=== PATIENT | female | born 1950 | race Caucasian/White ===

== ENCOUNTER 2016-08-22 14:55 | Emergency (ER) | payer MEDICARE, MEDICAID ==
[~2016-08-22] VITALS: Ht 160 cm; Wt 81.6 kg
[~2016-08-22 14:55] MED LIST: AC500T PO; AMOX-97 PO; ASP325TEC; ASP81CT; ASP81CT PO; ASP81TEC PO; ASPI-84; ATOR40TA PO; AZIT250T PO; BUDE6HFA IH; CALC-719 PO; CEPH-38 PO; CLOP75TA; CLOP75TA PO; CLPD75T; COUMADIN; COZAR; CRS350T; DIPH1TAB25 PO; ESCI20TA38 PO; ESCT10T; ESCT10T PO; FAMO20TA5; FENO145T; FENO145T2; FENO145T2 PO; FERR-57 PO; FRSM40T; FURO40TA4 PO; HYDR-2890 PO; HYDR-34 PO; HYDR1TAB PO; HYDROCODONE; INSU100C4; INSU100V6 SQ; INSU100V8; ISM60TCR; ISM60TCR PO; ISN300T; ISOS60TA3 PO; KCL10CCR; KCL10CCR PO; LEFL20TA; LEFL20TA PO; LEFL20TA4 PO; LEFLUNOMIDE; LEVO500T2 PO; LEVO500T69 PO; LEVO500T80 PO; LEVO750T6 PO; LNS30CCR; LOSA25TA15; LOSA25TA15 PO; LOSA25TA5 PO; LSRT50T PO; MAGN400T26 PO; MAGN400T29 PO; MAGNESIUM; MECL-106 PO; METF-380 PO; METO-354 PO; METO10TA3 PO; METO50TA7; METO50TA7 PO; METR500T PO; MSL250CCR PO; MTF500T; MTF500T PO; MTP25TSR PO; MTP50T; MULT-305 PO; Meclizine Hcl PO; NF-ESOM40C PO; NTR.4SL; OMG1KC; OXB5TCR; OXYB5TAB9; OXYB5TAB9 PO; PGLT30T; PGLT30T PO; PNT40TEC PO; POTA10CA43 PO; PROBIOTIC1 EACH PO; SIME125C PO; TRIA1TAB PO; TRIA1TAB42 PO; WARF4TAB PO; [UNRECOGNIZED DRUG - CODE]
--- NOTE | 2016-08-22 15:09 | ED Abdominal Pain ---
General Chief Complaint: Neurological Problems Stated Complaint: FALL Nursing Triage Note: TO ROOM 08 VIA AMBULANCE FROM HOME. STATES SHE HAS HAD N/V TODAY. ET ATTEMPT TO GET OUT OF BED ET BECAME WEAK AND FELL. DENIES HITTING HER BED. PT ARRIVED INC OF URINE AND STOOL. Sepsis Screen: No Definite Risk Source of Information: Patient Exam Limitations: No Limitations History of Present Illness Time Seen By Provider: 15:06 Initial Comments To ER per EMS from home with reports of nausea diarrhea and general weakness since this morning. She reports periumbilical abdominal pain. States that she try to get out of bed this morning when she slipped and fell but did not injure herself in doing so other than stating "I hurt my pride". The abdominal pain was present before the fall. She reports nausea but no vomiting. Upon arrival to ER she has been incontinent of both bowel and bladder. History of rheumatoid arthritis with Remicade injection every 2 months. Primary care is Elyse Langley at [facility]. She does wear oxygen at night. Records show that she does take Lomotil on a long-term basis and she states that she has run out of that. Timing/Duration: 12-24 Hours Severity/Quality: Moderate Radiation: No Radiation Activities at Onset: None Associated Symptoms: No Fever/Chills, Nausea/Vomiting Allergies and Home Medications Allergies Coded Allergies: enalaprilat (Verified Allergy, Unknown, 09/10/09) Home Medications Acetaminophen 500 Mg Tablet 1,000 MG PO Q6H PRN PRN (Reported) PRN PAIN Aspirin 81 Mg Tabec 81 MG PO DAILY (Reported) Atorvastatin Calcium 40 Mg Tablet 40 MG PO HS (Reported) Azithromycin 250 Mg Tablet #6 250 MG PO UD TAKE 2 TABLETS TODAY, THEN TAKE 1 TABLET DAILY FOR 4 MORE DAYS Prescribed by: CAROLINE HAZEL on 05/03/16 1441 Budesonide/Formoterol Fumarate 10.2 Gm Hfa.aer.ad 2 PUFF IH BID (Reported) Clopidogrel Bisulfate 75 Mg Tablet 75 MG PO DAILY (Reported) Diphenoxylate/Atropine 1 Tab Tablet #1 1 TAB PO QID Prescribed by: LINSEY SCHWARZ on 02/04/14 1453 Escitalopram Oxalate 20 Mg Tablet 30 MG PO DAILY (Reported) TAKES 1 & 1/2 TAB OF 20MG TAB DAILY Fenofibrate,Micronized 145 Mg Tablet 145 MG PO HS (Reported) Ferrous Sulfate 325 Mg Tablet 30Days 325 MG PO DAILY Prescribed by: XIANG LEE on 03/12/15 1437 Furosemide 40 Mg Tablet 40 MG PO DAILY (Reported) Hydrocodone Bit/Acetaminophen 1 Each Tablet 1 TAB PO Q6H (Reported) Insulin Glargine,Hum.rec.anlog 100 Unit/1 Ml Vial 30Days 10 UNITS SQ HS IF BLOOD GLUCOSE BELOW 200 PT DOES NOT TAKE FULL 20 UNITS. IF BLOOD GLUCOSE IS 200-230 PT TAKES 15 UNITS, IF OVER 230 WILL TAKE 20 UNITS. Prescribed by: XIANG LEE on 03/12/15 1437 Leflunomide 20 Mg Tablet 20 MG PO DAILY (Reported) Levofloxacin 500 Mg Tablet #7 500 MG PO DAILY Prescribed by: LAUREN MARQUEZ on 04/08/15 1127 Losartan Potassium 25 Mg Tablet 25 MG PO DAILY (Reported) Magnesium Oxide 400 Mg Tablet #30 400 MG PO DAILY (Reported) Meclizine Hcl 25 Mg Tab #60 25 MG PO BID PRN PRN DIZZINESS (Reported) Metformin Hcl 500 Mg Tablet 1,000 MG PO BID (Reported) TAKES 2 TABS OF 500MG TWICE DAILY Metoprolol Succinate 50 Mg Tab.sr.24h 30Days 25 MG PO DAILY TAKES 1/2 TAB DAILY (25 MG) Prescribed by: XIANG LEE on 03/12/15 1431 Oxybutynin Chloride 5 Mg Tablet 5 MG PO DAILY (Reported) Pantoprazole Sod 40 Mg Tab 40 MG PO DAILY (Reported) Pioglitazone Hcl 30 Mg Tab 30 MG PO DAILY (Reported) Potassium Chloride 10 Meq Tablet.sa 20 MEQ PO DAILY (Reported) Triamterene/Hydrochlorothiazid 1 Each Tablet 0.5 TAB PO DAILY (Reported) Review of Systems Constitutional: see HPINo chills, No fever EENTM: No Symptoms Reported Respiratory: No Symptoms Reported Cardiovascular: No Symptoms Reported Gastrointestinal: See HPI Abdominal Pain Diarrhea Nausea Genitourinary: No Symptoms Reported Musculoskeletal: no symptoms reported Skin: no symptoms reported Psychiatric/Neurological: No Symptoms Reported Endocrine: No Symptoms Reported Past Osslfei-Adapco-Lwalzb Hx Patient Social History Former Smoker/When Quit: Mar 11, 1994 Recent Foreign Travel: No Contact w/Someone Who Travel: No Recent Infectious Disease Expo: No Recent Hopitalizations: No Immunizations Up To Date Tetanus Booster (TDap): More than 5yrs Date of Pneumonia Vaccine: May 19, 2010 Date of Influenza Vaccine: May 19, 2014 Seasonal Allergies Seasonal Allergies: No Surgeries HX Surgeries: Yes (TRIPLE BYPASS AND 7 STENTS PLACED OF 2006) Surgeries: Cardiac, CABG Respiratory Hx Respiratory Disorders: Yes Respiratory Disorders: Pneumonia, Sleep Apnea, COPD, Emphysema Cardiovascular Hx Cardiac Disorders: Yes (BYPASS) Cardiac Disorders: Coronary Artery Disease Neurological Hx Neurological Disorders: Yes Reproductive System Hx Reproductive Disorders: No Sexually Transmitted Disease: Yes (CHLAMYDIA HX) HIV/AIDS: No Female Reproductive Disorders: Denies Genitourinary Hx Genitourinary Disorders: No Gastrointestinal Hx Gastrointestinal Disorders: Yes Gastrointestinal Disorders: Gastroesophageal Reflux, Diverticulosis, Chronic Diarrhea, Gall Bladder Disease Musculoskeletal Hx Musculoskeletal Disorders: Yes (RA/FIBROMYALGIA REMICADE EVERY 8 WEEKS, ) Musculoskeletal Disorders: Fibromyalgia, Rheumatoid Arthritis Endocrine Hx Endocrine Disorders: Yes Endocrine Disorders: Diabetes, Insulin dep HEENT HX ENT Disorders: No Loss of Vision: Denies Hearing Impairment: Denies Cancer Hx Cancer: No Psychosocial Hx Psychiatric Problems: Yes Behavioral Health Disorders: Anxiety, Depression Integumentary HX Skin/Integumentary Disorder: No Blood Transfusions Hx Blood Disorders: No Adverse Reaction to a Blood Tr: No Family Medical History Significant Family History: No Pertinent Family Hx Family Medial History: Alcoholism son, Onset:Unknown son, Onset:Unknown Cardiovascular disease 19 FATHER, Onset:Unknown Chest pain 19 FATHER, Onset:Unknown Diabetes mellitus 19 FATHER, Onset:Unknown G8 SISTER, Onset:Unknown DAUGHTER, Onset:Unknown Family history: Diabetes mellitus 19 FATHER G8 SISTER DAUGHTER Family history: Hypertension 19 FATHER 19 MOTHER DAUGHTER History of - respiratory disease DAUGHTER Myocardial infarction 19 FATHER Myocardial infarction 19 FATHER Psychotic disorder 19 FATHER 19 MOTHER DAUGHTER Tuberculosis Grandmother, Onset:Unknown No Family History of: Abdominal aortic aneurysm Milam's disease Aphasia Arthritis Asthma Cancer Cancer of colon Cancer of mouth Cataract Cataracts Colon cancer Completed stroke Congenital disease Congenital heart disease Congestive heart failure Coronary thrombosis Cystic fibrosis Cystic fibrosis Deafness or hearing loss Dementia Dementia Drug abuse Dysphagia Dysphasia Family history: Allergy Family history: Alzheimer's disease Family history: Arthritis Family history: Asthma Family history: Breast disease Family history: Cardiovascular disease Family history: Coronary thrombosis Family history: Gastrointestinal disease Family history: Glaucoma Family history: Osteoporosis Family history: Thyroid disorder Headache Hearing loss Heart disease Hereditary disease History of - anemia History of - disorder History of drug abuse Human immunodeficiency virus (HIV) seropositivity Hypercholesterolemia Hypertension Infertile Infertility Kidney disease Kidney disease Malignant neoplasm of lung Neoplasm Not obtainable due to adoption Osteoporosis Parkinson's disease Parkinson's disease Prostate cancer Respiratory disorder Seizure disorder Seizure disorder Severe allergy Stroke Tuberculosis Visual impairment Physical Exam Vital Signs VS - Last 72 Hours, by Label 08/22/16 08/22/16 14:58 15:17 Temp 99.7 Pulse 96 Resp 18 B/P 169/84 Pulse Ox 88 O2 Delivery Room Air Nasal Cannula O2 Flow Rate 2 Capillary Refill : Less Than 3 Seconds General Appearance: WD/WN no apparent distress obese other (Chronicall ill, appears older than stated age. ) HEENT: PERRL/EOMI normal ENT inspection Neck: non-tender full range of motion Respiratory: no respiratory distress no accessory muscle use Gastrointestinal: normal bowel sounds soft tenderness (periumbilical) Extremities: normal range of motion non-tender Neurologic/Psychiatric: alert normal mood/affect oriented x 3 Skin: normal color warm/dry Laceration Repair : Suture Size: 5-0 Progress/Results/Core Measures Results/Orders Lab Results Laboratory Tests Test 08/22/16 15:10 08/22/16 16:00 Range/Units Alanine Aminotransferase (ALT/SGPT) 31 0-55 U/L Albumin 3.8 3.2-4.5 G/DL Alkaline Phosphatase 53 40-136 U/L Anion Gap 10 5-14 MMOL/L Aspartate Amino Transf (AST/SGOT) 70 H 5-34 U/L BUN/Creatinine Ratio 20 Basophils # (Auto) 0.0 0.0-0.1 10^3/uL Basophils (%) (Auto) 1 0-10 % Blood Urea Nitrogen 25 H 7-18 MG/DL Calcium Level 9.5 8.5-10.1 MG/DL Carbon Dioxide Level 29 21-32 MMOL/L Chloride Level 100 98-107 MMOL/L Creatinine 1.28 0.60-1.30 MG/DL Eosinophils # (Auto) 0.1 0.0-0.3 10^3/uL Eosinophils (%) (Auto) 3 0-10 % Estimat Glomerular Filtration Rate 42 Glucose Level 216 H 70-105 MG/DL Hematocrit 37 35-52 % Hemoglobin 12.1 11.5-16.0 G/DL Lipase 29 8-78 U/L Lymphocytes # (Auto) 1.0 1.0-4.0 X 10^3 Lymphocytes (%) (Auto) 26 12-44 % Mean Corpuscular Hemoglobin 31 25-34 PG Mean Corpuscular Hemoglobin Concent 33 32-36 G/DL Mean Corpuscular Volume 95 80-99 FL Mean Platelet Volume 10.8 H 7.4-10.4 FL Monocytes # (Auto) 0.5 0.0-1.0 X 10^3 Monocytes (%) (Auto) 14 H 0-12 % Neutrophils # (Auto) 2.1 1.8-7.8 X 10^3 Neutrophils (%) (Auto) 56 42-75 % Platelet Count 193 130-400 10^3/uL Potassium Level 3.5 L 3.6-5.0 MMOL/L Red Blood Count 3.90 L 4.35-5.85 10^6/uL Red Cell Distribution Width 13.9 10.0-14.5 % Sodium Level 139 135-145 MMOL/L Total Bilirubin 0.5 0.1-1.0 MG/DL Total Protein 7.0 6.4-8.2 G/DL White Blood Count 3.8 L 4.3-11.0 10^3/uL Urine Bacteria TRACE /HPF Urine Bilirubin NEGATIVE NEGATIVE Urine Casts NONE /LPF Urine Clarity CLEAR Urine Color YELLOW Urine Crystals NONE /LPF Urine Culture Indicated NO Urine Glucose (UA) 1+ H NEGATIVE Urine Ketones NEGATIVE NEGATIVE Urine Leukocyte Esterase 1+ H NEGATIVE Urine Mucus NEGATIVE /LPF Urine Nitrite NEGATIVE NEGATIVE Urine Protein NEGATIVE NEGATIVE Urine RBC NONE /HPF Urine RBC (Auto) NEGATIVE NEGATIVE Urine Specific Clark 1.005 L 1.016-1.022 Urine Urobilinogen NORMAL NORMAL MG/DL Urine WBC 0-2 /HPF Urine pH 7 5-9 My Orders Orders-CAROLINE HAZEL HAND [employer]ATE [employer]ER Cbc With Automated Diff (08/22/16 15:03) Comprehensive Metabolic Panel (08/22/16 15:03) Lipase (08/22/16 15:03) Ua Culture If Indicated (08/22/16 15:03) Saline Lock/Iv-Start (08/22/16 15:03) Ct Abdomen/Pelvis Wo (08/22/16 15:03) Chest 1 View, Ap/Pa Only (08/22/16 15:10) Oxygen-Administer 07,19 (08/22/16 15:12) Ns Iv 1000 Ml (Sodium Chloride 0.9%) (08/22/16 15:30) Ondansetron Injection (Zofran Injectio (08/22/16 15:45) Diphenhydramine Injection (Benadryl Inje (08/22/16 15:45) Fentanyl Injection (Sublimaze Injection (08/22/16 16:15) Medications Given in ED Current Medications Medications Dose Ordered Sig/Johnny Route Start Time Stop Time Status Last Admin Dose Admin Diphenhydramine HCl 12.5 mg ONCE ONCE IVP 08/22/16 15:45 08/22/16 15:46 DC 08/22/16 15:47 12.5 MG Fentanyl Citrate 50 mcg ONCE ONCE IVP 08/22/16 16:15 08/22/16 16:16 DC 08/22/16 16:24 50 MCG Ondansetron HCl 4 mg ONCE ONCE IVP 08/22/16 15:45 08/22/16 15:46 DC 08/22/16 15:47 4 MG Vital Signs/I&O Vital Sign - Last 12Hours 08/22/16 08/22/16 14:58 15:17 Temp 99.7 Pulse 96 Resp 18 B/P 169/84 Pulse Ox 88 O2 Delivery Room Air Nasal Cannula O2 Flow Rate 2 Blood Pressure Mean: 112 Diagnostic Imaging Diagonstic Imaging: CT Comments NAME: LINDA THURMAN [facility] REC#: [id number] PT STATUS: REG ER : 1950 PHYSICIAN: CAROLINE HAZEL APRN ADMIT DATE: 08/22/16/ER Draft Date of Exam:08/22/16 CT ABDOMEN/PELVIS WO PROCEDURE: CT abdomen and pelvis without contrast. TECHNIQUE: Multiple contiguous axial images were obtained through the abdomen and pelvis without the use of intravenous contrast. INDICATION: Fall. Pain across the upper abdomen. Nausea. COMPARISON: 04/08/2015. FINDINGS: Included portions of the lung bases again show left-sided pleural thickening with rounded atelectasis of the left lower lobe. Note is made of calcified coronary atherosclerosis. CT abdomen: Small bowel loops are nondistended. Normal appendix is identified. The spleen, kidneys, liver, pancreas, and adrenal glands have an unremarkable noncontrast CT appearance. There is no loculated fluid collection, free fluid, or free air within the abdomen. No abnormal mesenteric or retroperitoneal adenopathy is seen. Note is made of diffuse calcified aortic and arterial atherosclerosis. Indwelling IVC filter is also present. Bony structures show no acute abnormalities. CT pelvis: Urinary bladder is unopacified. No calculus is seen within the urinary bladder. There is no loculated fluid collection, free fluid, or free air within the pelvis. No abnormal lymph nodes are seen. Bony structures show no acute abnormalities. IMPRESSION: 1. No acute abnormalities within the abdomen or pelvis. 2. Diffuse calcified aortic and arterial atherosclerosis. Correlation for underlying risk factors is recommended. 3. Chronic pleural thickening within the lower left hemithorax with associated rounded atelectasis of the left lower lobe. Dictated on workstation # [id number] Dict: 08/22/16 1543 Trans: 08/22/16 1551 [id number] Interpreted by: KVNG PINZON Electronically signed by: NAME: LINDA THURMAN [facility] REC#: [id number] PT STATUS: REG ER : 1950 PHYSICIAN: CAROLINE HAZEL APRN ADMIT DATE: 08/22/16/ER Draft Date of Exam:08/22/16 CHEST 1 VIEW, AP/PA ONLY INDICATION: Hypoxia. COMPARISON: 05/03/2016. EXAMINATION: Single view of the chest was obtained. FINDINGS: Congenital right-sided aortic arch is noted. The sternal wires are midline. A few are fractured but unchanged in alignment. There is some chronic scarring in the left lung base and chronic basilar pleural reaction, unchanged. Air trapping and COPD, stable. IMPRESSION: Stable chronic findings. Dictated on workstation # [id number] Dict: 08/22/16 1553 Trans: 08/22/16 1558 PJ [id number] Interpreted by: LORELEI GABRIEL Electronically signed by: Departure Impression Impression: Primary Impression: Weakness Additional Impressions: Generalized abdominal discomfort Diarrheal stools Qualified Code: R19.7 - Diarrhea, unspecified Disposition: 01 HOME, SELF-CARE Condition: Stable Departure-Patient Inst. Decision time for Depature: 16:19 [facility]errals: [facility] ([facility]Family) Primary Care Physician Patient Instructions: Diarrhea and Traveler's Diarrhea, Adult (DC) Add. Discharge Instructions: 1. Lots of fluids. Water is fine if you don't like Gatorade 2. Check your sugars 2-3 times a day for the next few days since they're little high line 3. Bananas rice applesauce and toast for the next 12-24 hours and he may advance her diet from there if you tolerate that okay All discharge instructions reviewed with patient and/or family. Voiced understanding. Scripts Ondansetron (Zofran Odt)8 Mg Tab.rapdis8 Mg PO Q6H PRN NAUSEA/VOMITING #10 TAB Prov:CAROLINE HAZEL APRN 08/22/16 CAROLINE HAZEL APRN Aug 22, 2016 15:08
[2016-08-22 15:19] LABS: BASOPHILS % (AUTO) 1 % (0-10); EOSINOPHILS # (AUTO) 0.1 10^3/uL (0.0-0.3); EOSINOPHILS % (AUTO) 3 % (0-10); LYMPHOCYTES % (AUTO) 26 % (12-44); MEAN CORPUSCULAR HEMOGLOBIN 31 PG (25-34); MEAN CORPUSCULAR HGB CONC 33 G/DL (32-36); MEAN CORPUSCULAR VOLUME 95 FL (80-99); MEAN PLATELET VOLUME 10.8 FL (7.4-10.4); MONOCYTES # (AUTO) 0.5 X 10^3 (0.0-1.0); MONOCYTES % (AUTO) 14 % (0-12); NEUTROPHILS # (AUTO) 2.1 X 10^3 (1.8-7.8); NEUTROPHILS % (AUTO) 56 % (42-75); PLATELET COUNT 193 10^3/uL (130-400); RED CELL DISTRIBUTION WIDTH 13.9 % (10.0-14.5); WHITE BLOOD COUNT 3.8 10^3/uL (4.3-11.0)
[2016-08-22] MEDS ORDERED: NS IV 1000 ML 1,000 ML IV SCH (15:30)
[2016-08-22 15:39] LABS: ALBUMIN 3.8 G/DL (3.2-4.5); BILIRUBIN,TOTAL 0.5 MG/DL (0.1-1.0); CALCIUM 9.5 MG/DL (8.5-10.1); CREATININE SERUM 1.28 MG/DL (0.60-1.30); POTASSIUM 3.5 MMOL/L (3.6-5.0)
[2016-08-22] MEDS ORDERED: ONDANSETRON 4 MG/2 ML (SDV) Z0FRAN IVP ONE (15:45)
[2016-08-22] MEDS ORDERED: diphenhydrAMINE 50 MG/ML INJ (BENADRYL) IVP ONE (15:45)
--- NOTE | 2016-08-22 15:51 | Diagnostic Imaging Report ---
PROCEDURE: CT abdomen and pelvis without contrast. TECHNIQUE: Multiple contiguous axial images were obtained through the abdomen and pelvis without the use of intravenous contrast. INDICATION: Fall. Pain across the upper abdomen. Nausea. COMPARISON: 04/08/2015. FINDINGS: Included portions of the lung bases again show left-sided pleural thickening with rounded atelectasis of the left lower lobe. Note is made of calcified coronary atherosclerosis. CT abdomen: Small bowel loops are nondistended. Normal appendix is identified. The spleen, kidneys, liver, pancreas, and adrenal glands have an unremarkable noncontrast CT appearance. There is no loculated fluid collection, free fluid, or free air within the abdomen. No abnormal mesenteric or retroperitoneal adenopathy is seen. Note is made of diffuse calcified aortic and arterial atherosclerosis. Indwelling IVC filter is also present. Bony structures show no acute abnormalities. CT pelvis: Urinary bladder is unopacified. No calculus is seen within the urinary bladder. There is no loculated fluid collection, free fluid, or free air within the pelvis. No abnormal lymph nodes are seen. Bony structures show no acute abnormalities. IMPRESSION: 1. No acute abnormalities within the abdomen or pelvis. 2. Diffuse calcified aortic and arterial atherosclerosis. Correlation for underlying risk factors is recommended. 3. Chronic pleural thickening within the lower left hemithorax with associated rounded atelectasis of the left lower lobe. Dictated by: Dictated on workstation # [id number]
--- NOTE | 2016-08-22 15:59 | Diagnostic Imaging Report ---
INDICATION: Hypoxia. COMPARISON: 05/03/2016. EXAMINATION: Single view of the chest was obtained. FINDINGS: Congenital right-sided aortic arch is noted. The sternal wires are midline. A few are fractured but unchanged in alignment. There is some chronic scarring in the left lung base and chronic basilar pleural reaction, unchanged. Air trapping and COPD, stable. IMPRESSION: Stable chronic findings. Dictated by: Dictated on workstation # [id number]
[2016-08-22 16:07] LABS: BILIRUBIN,URINE NEGATIVE (NEGATIVE); KETONES,URINE NEGATIVE (NEGATIVE); LEUKOCYTE ESTERASE ,URINE 1+ (NEGATIVE); NITRITE,URINE NEGATIVE (NEGATIVE); PH,URINE 7 (5-9); PROTEIN,URINE NEGATIVE (NEGATIVE); UROBILINOGEN,URINE NORMAL (NORMAL)
[2016-08-22] MEDS ORDERED: fentaNYL INJECTION 100 MCG/2 ML AMP IVP ONE (16:15)
[2016-08-22 16:21] LABS: WBC,URINE 0-2 /HPF
[2016-08-22] MEDS ORDERED: ONDA8TAB9 PO (16:29)
[2016-08-22 17:03] VITALS: BP 162/87
[2016-11-07] MEDS ORDERED: CYAN10006 PO (13:07)
[2016-11-07] MEDS ORDERED: OMEG-160 PO (13:07)
== END 2016-08-22 17:02 | disposition home or self-care (01) ==
LOC: EDUNIT# 14:55 → ER 14:56
DX: R10.84 Generalized abdominal pain (principal); R53.1 Weakness; R19.7 Diarrhea, unspecified; I10 Essential (primary) hypertension; E11.9 Type 2 diabetes mellitus without complications; E66.9 Obesity, unspecified; M06.9 Rheumatoid arthritis, unspecified; I70.0 Atherosclerosis of aorta; Z79.4 Long term (current) use of insulin; Z79.02 Long term (current) use of antithrombotics/antiplatelets; Z79.899 Other long term (current) drug therapy; Z79.82 Long term (current) use of aspirin; Z95.1 Presence of aortocoronary bypass graft; Z95.5 Presence of coronary angioplasty implant and graft
CPT/HCPCS: 36415; 71010; 74176; 80053; 81000; 83690; 85025; 96361; 96374; 96375

== ENCOUNTER → 2016-09-12 | Outpatient (CLI) | payer MEDICARE, MEDICAID ==
[~2016-09-12] VITALS: Ht 160 cm; Wt 81.6 kg
[~2016-09-12] MED LIST changes: +ACETAMINOPHEN 500 MG TAB (TYLENOL) PO SCH; +CYAN10006 PO; +OMEG-160 PO; +ONDA8TAB9 PO; +TRAM50TA2 PO; +diphenhydrAMINE 25 MG TAB (BENADRYL) PO SCH; +inFLIXimab FOR IV 500 MG in NORMAL SALINE 250 ML IV SCH
[2016-09-12 12:46] VITALS: BP 130/66
== END ==
LOC: SDC 12:33
PROVIDERS: ATTEND Nurse Practitioner Adult Health
DX: M05.741 Rheumatoid arthritis with rheumatoid factor of right hand without organ or systems involvement (principal); M05.742 Rheumatoid arthritis with rheumatoid factor of left hand without organ or systems involvement; M54.2 Cervicalgia; M32.9 Systemic lupus erythematosus, unspecified; M06.9 Rheumatoid arthritis, unspecified; Z79.899 Other long term (current) drug therapy
CPT/HCPCS: 96365; 96366; 96374

== ENCOUNTER → 2016-11-07 | Outpatient (CLI) | payer MEDICARE, MEDICAID ==
[~2016-11-07] VITALS: Ht 160 cm; Wt 81.6 kg
[~2016-11-07] MED LIST changes: +inFLIXimab 500 MG/NS 250 ML (EXCEL) IV SCH; -inFLIXimab FOR IV 500 MG in NORMAL SALINE 250 ML IV SCH
[2016-11-07 13:15] VITALS: BP 130/67
[2016-11-07 15:20] VITALS: BP 130/67
== END ==
LOC: SDC 12:33
PROVIDERS: ATTEND Internal Medicine
DX: M06.9 Rheumatoid arthritis, unspecified (principal)
CPT/HCPCS: 96365; 96366

== ENCOUNTER 2016-11-27 10:03 | Emergency (ER) | payer MEDICARE, MEDICAID ==
[~2016-11-27] VITALS: Ht 167.6 cm; Wt 86.2 kg
[~2016-11-27 10:03] MED LIST changes: -ACETAMINOPHEN 500 MG TAB (TYLENOL) PO SCH; -TRAM50TA2 PO; -diphenhydrAMINE 25 MG TAB (BENADRYL) PO SCH; -inFLIXimab 500 MG/NS 250 ML (EXCEL) IV SCH
[2016-11-27] MEDS ORDERED: fentaNYL INJECTION 100 MCG/2 ML AMP IVP STA ×2 (10:12→13:29)
[2016-11-27 10:40] LABS: BASOPHILS # (AUTO) 0.1 10^3/uL (0.0-0.1); BASOPHILS % (AUTO) 1 % (0-10); EOSINOPHILS % (AUTO) 1 % (0-10); LYMPHOCYTES % (AUTO) 21 % (12-44); MEAN CORPUSCULAR HEMOGLOBIN 31 PG (25-34); MEAN CORPUSCULAR HGB CONC 33 G/DL (32-36); MEAN CORPUSCULAR VOLUME 95 FL (80-99); MEAN PLATELET VOLUME 11.2 FL (7.4-10.4); MONOCYTES # (AUTO) 0.5 X 10^3 (0.0-1.0); MONOCYTES % (AUTO) 10 % (0-12); NEUTROPHILS # (AUTO) 3.3 X 10^3 (1.8-7.8); NEUTROPHILS % (AUTO) 68 % (42-75); PLATELET COUNT 207 10^3/uL (130-400); RED BLOOD COUNT 3.97 10^6/uL (4.35-5.85); RED CELL DISTRIBUTION WIDTH 13.6 % (10.0-14.5); WHITE BLOOD COUNT 4.9 10^3/uL (4.3-11.0)
--- NOTE | 2016-11-27 10:48 | Diagnostic Imaging Report ---
INDICATION: Weakness and fatigue. DISCUSSION: Single portable upright view of the chest was obtained, comparison 08/22/2016. Scarring within the left midlung is stable. Right chest wall Bzoila-l-Zugl is unchanged. Median sternotomy is again noted. Normal heart size. Underlying COPD is stable. Small left pleural effusion or pleural scarring is stable. IMPRESSION: 1. Stable chest. Dictated by: Dictated on workstation # [id number]
[2016-11-27 10:50] LABS: BILIRUBIN,URINE NEGATIVE (NEGATIVE); KETONES,URINE NEGATIVE (NEGATIVE); LEUKOCYTE ESTERASE ,URINE NEGATIVE (NEGATIVE); NITRITE,URINE NEGATIVE (NEGATIVE); PH,URINE 7 (5-9); PROTEIN,URINE 1+ (NEGATIVE); UROBILINOGEN,URINE NORMAL (NORMAL)
[2016-11-27 10:54] LABS: INR 1.2 (0.8-1.4); PROTHROMBIN TIME PATIENT 14.7 SEC (12.2-14.7)
--- NOTE | 2016-11-27 10:59 | ED General ---
General Chief Complaint: Fever-Adult/Adol Stated Complaint: FEELING POORLY Nursing Triage Note: PT ARRIVED BY EMS, STATES NOT FEELING WELL, FEVER, SOA Nursing Sepsis Screen: Possible Sepsis Risk Source of Information: Patient Exam Limitations: No Limitations History of Present Illness Time Seen by Provider: 10:05 Initial Comments Here with report of not feeling well. She called EMS due to not feeling well. EMS noted that she had a fever. Patient was difficult to ascertain information from per EMS. She did walk from her house to the ambulance of her own accord. States her fibromyalgia is hurting everywhere. Was noted to have a fever. Denies vomiting or diarrhea. Reports shortness of breath. Timing/Duration: 12-24 Hours Severity: Moderate Associated Systoms: No Chest Pain, No Cough, Fever/Chills, No Nausea/Vomiting, Shortness of Air, Weakness Allergies and Home Medications Allergies Coded Allergies: enalaprilat (Verified Allergy, Unknown, 09/10/09) Home Medications Acetaminophen 500 Mg Tablet, 1,000 MG PO Q6H PRN, (Reported) PRN PAIN Aspirin 81 Mg Tabec, 81 MG PO DAILY, (Reported) Atorvastatin Calcium 40 Mg Tablet, 40 MG PO HS, (Reported) Budesonide/Formoterol Fumarate 10.2 Gm Hfa.aer.ad, 2 PUFF IH BID, (Reported) Clopidogrel Bisulfate 75 Mg Tablet, 75 MG PO DAILY, (Reported) Cyanocobalamin (Vitamin B-12) 1,000 Mcg Tablet, 1,000 MCG PO DAILY, (Reported) Diphenoxylate/Atropine 1 Tab Tablet, 1 TAB PO QID, #1 Prescribed by: LINSEY SCHWARZ on 02/04/14 1453 Escitalopram Oxalate 20 Mg Tablet, 30 MG PO DAILY, (Reported) TAKES 1 & 1/2 TAB OF 20MG TAB DAILY Fenofibrate,Micronized 145 Mg Tablet, 145 MG PO HS, (Reported) Ferrous Sulfate 325 Mg Tablet, 325 MG PO DAILY for 30 Days Prescribed by: XIANG LEE on 03/12/15 1437 Furosemide 40 Mg Tablet, 40 MG PO DAILY, (Reported) Hydrocodone Bit/Acetaminophen 1 Each Tablet, 1 TAB PO Q6H, (Reported) Insulin Glargine,Hum.rec.anlog 100 Unit/1 Ml Vial, 10 UNITS SQ HS for 30 Days IF BLOOD GLUCOSE BELOW 200 PT DOES NOT TAKE FULL 20 UNITS. IF BLOOD GLUCOSE IS 200-230 PT TAKES 15 UNITS, IF OVER 230 WILL TAKE 20 UNITS. Prescribed by: XIANG LEE on 03/12/15 1437 Leflunomide 20 Mg Tablet, 20 MG PO DAILY, (Reported) Losartan Potassium 25 Mg Tablet, 25 MG PO DAILY, (Reported) Magnesium Oxide 400 Mg Tablet, 400 MG PO DAILY, #30 (Reported) Meclizine Hcl 25 Mg Tab, 25 MG PO BID PRN for DIZZINESS, #60 (Reported) Metformin Hcl 500 Mg Tablet, 1,000 MG PO BID, (Reported) TAKES 2 TABS OF 500MG TWICE DAILY Metoprolol Succinate 50 Mg Tab.sr.24h, 25 MG PO DAILY for 30 Days TAKES 1/2 TAB DAILY (25 MG) Prescribed by: XIANG LEE on 03/12/15 1431 Kenna-3/Dha/Epa/Fish Oil 1 Each Capsule, 1 CAP PO DAILY, (Reported) Ondansetron 8 Mg Tab.rapdis, 8 MG PO Q6H PRN for NAUSEA/VOMITING, #10 Prescribed by: CAROLINE HAZEL on 08/22/16 1629 Oxybutynin Chloride 5 Mg Tablet, 5 MG PO DAILY, (Reported) Pantoprazole Sod 40 Mg Tab, 40 MG PO DAILY, (Reported) Pioglitazone Hcl 30 Mg Tab, 30 MG PO DAILY, (Reported) Potassium Chloride 10 Meq Tablet.sa, 20 MEQ PO DAILY, (Reported) Triamterene/Hydrochlorothiazid 1 Each Tablet, 0.5 TAB PO DAILY, (Reported) Constitutional: see HPI, No chills, fever, weakness EENTM: no symptoms reported Respiratory: cough, short of breath Cardiovascular: No chest pain, No edema Gastrointestinal: No abdominal pain, No nausea, No vomiting Genitourinary: no symptoms reported Musculoskeletal: see HPI, joint pain, muscle pain Skin: no symptoms reported Psychiatric/Neurological: No Symptoms Reported All Other Systems Reviewed Negative Unless Noted: Yes Past Fndzxnm-Vekoiy-Jcmibb Hx Patient Social History Alcohol Use: Denies Use Recreational Drug Use: No Smoking Status: Former Smoker Type Used: Cigarettes Former Smoker/When Quit: Mar 11, 1994 Recent Foreign Travel: No Contact w/Someone Who Travel: No Recent Infectious Disease Expo: No Recent Hopitalizations: No Immunizations Up To Date Tetanus Booster (TDap): More than 5yrs Date of Pneumonia Vaccine: May 19, 2010 Date of Influenza Vaccine: May 19, 2014 Seasonal Allergies Seasonal Allergies: No Surgeries HX Surgeries: Yes (TRIPLE BYPASS AND 7 STENTS PLACED IN 2006) Surgeries: Cardiac, CABG Respiratory Hx Respiratory Disorders: Yes Respiratory Disorders: Pneumonia, Sleep Apnea, COPD, Emphysema Cardiovascular Hx Cardiac Disorders: Yes (BYPASS) Cardiac Disorders: Coronary Artery Disease Neurological Hx Neurological Disorders: Yes Reproductive System Hx Reproductive Disorders: No Sexually Transmitted Disease: Yes (CHLAMYDIA HX) HIV/AIDS: No Female Reproductive Disorders: Denies Genitourinary Hx Genitourinary Disorders: No Gastrointestinal Hx Gastrointestinal Disorders: Yes Gastrointestinal Disorders: Gastroesophageal Reflux, Diverticulosis, Chronic Diarrhea, Gall Bladder Disease Musculoskeletal Hx Musculoskeletal Disorders: Yes (RA/FIBROMYALGIA - REMICADE EVERY 8 WEEKS) Musculoskeletal Disorders: Fibromyalgia, Rheumatoid Arthritis Endocrine Hx Endocrine Disorders: Yes Endocrine Disorders: Diabetes, Insulin dep HEENT HX ENT Disorders: No Loss of Vision: Denies Hearing Impairment: Denies Cancer Hx Cancer: No Psychosocial Hx Psychiatric Problems: Yes Behavioral Health Disorders: Anxiety, Depression Integumentary HX Skin/Integumentary Disorder: No Blood Transfusions Hx Blood Disorders: No Adverse Reaction to a Blood Tr: No Reviewed Nursing Assessment Reviewed/Agree w Nursing PMH: Yes Family Medical History Significant Family History: No Pertinent Family Hx Family Medial History: Alcoholism son, Onset:Unknown son, Onset:Unknown Cardiovascular disease 19 FATHER, Onset:Unknown Chest pain 19 FATHER, Onset:Unknown Diabetes mellitus 19 FATHER, Onset:Unknown G8 SISTER, Onset:Unknown DAUGHTER, Onset:Unknown Family history: Diabetes mellitus 19 FATHER G8 SISTER DAUGHTER Family history: Hypertension 19 FATHER 19 MOTHER DAUGHTER History of - respiratory disease DAUGHTER Myocardial infarction 19 FATHER Myocardial infarction 19 FATHER Psychotic disorder 19 FATHER 19 MOTHER DAUGHTER Tuberculosis Grandmother, Onset:Unknown Physical Exam-Suspected Sepsis Physical Exam Vital Signs Vital Sign - Last 12Hours 11/27/16 10:04 Temp 98.5 Pulse 104 Resp 20 Capillary Refill : Less Than 3 Seconds General Appearance: No Apparent Distress, WD/WN HEENT: PERRL/EOMI, Pharynx Normal Neck: Non Tender, Supple Respiratory: Lungs Clear, Normal Breath Sounds Cardiovascular: No Murmur, Tachycardia Gastrointestinal: Non Tender, Soft Back: Normal Inspection, No CVA Tenderness, No Vertebral Tenderness Extremity: Normal Range of Motion, Non Tender Neurologic/Psychiatric: Alert, Oriented x3 Skin: normal color, warm/dry Focused Exam Lactic Acid Level Laceration Repair : Suture Size: 5-0 Progress/Results/Core Measures Suspected Sepsis Recent Fever Within 48 Hours: Yes Infection Criteria Present: Suspected New Infection New/Unexplained Altered Menta: No Sepsis Screen: Possible Sepsis Risk Sepsis Diagnosis: SIRS Temperature:98.5 Pulse: 104 Respiratory Rate: 20 Laboratory Tests 11/27/16 10:20: White Blood Count 4.9 Blood Pressure / Mean: Laboratory Tests 11/27/16 10:20: Creatinine 0.98, INR Comment 1.2, Platelet Count 207, Total Bilirubin 0.8 Results/Orders Lab Results Laboratory Tests Test 11/27/16 10:20 Range/Units White Blood Count 4.9 4.3-11.0 10^3/uL Red Blood Count 3.97 L 4.35-5.85 10^6/uL Hemoglobin 12.4 11.5-16.0 G/DL Hematocrit 38 35-52 % Mean Corpuscular Volume 95 80-99 FL Mean Corpuscular Hemoglobin 31 25-34 PG Mean Corpuscular Hemoglobin Concent 33 32-36 G/DL Red Cell Distribution Width 13.6 10.0-14.5 % Platelet Count 207 130-400 10^3/uL Mean Platelet Volume 11.2 H 7.4-10.4 FL Neutrophils (%) (Auto) 68 42-75 % Lymphocytes (%) (Auto) 21 12-44 % Monocytes (%) (Auto) 10 0-12 % Eosinophils (%) (Auto) 1 0-10 % Basophils (%) (Auto) 1 0-10 % Neutrophils # (Auto) 3.3 1.8-7.8 X 10^3 Lymphocytes # (Auto) 1.0 1.0-4.0 X 10^3 Monocytes # (Auto) 0.5 0.0-1.0 X 10^3 Eosinophils # (Auto) 0.0 0.0-0.3 10^3/uL Basophils # (Auto) 0.1 0.0-0.1 10^3/uL Prothrombin Time 14.7 12.2-14.7 SEC INR Comment 1.2 0.8-1.4 Activated Partial Thromboplast Time 30 24-35 SEC D-Dimer 1.82 H 0.00-0.49 UG/ML Urine Color YELLOW Urine Clarity CLEAR Urine pH 7 5-9 Urine Specific [place] 1.010 L 1.016-1.022 Urine Protein 1+ H NEGATIVE Urine Glucose (UA) 4+ H NEGATIVE Urine Ketones NEGATIVE NEGATIVE Urine Nitrite NEGATIVE NEGATIVE Urine Bilirubin NEGATIVE NEGATIVE Urine Urobilinogen NORMAL NORMAL MG/DL Urine Leukocyte Esterase NEGATIVE NEGATIVE Urine RBC (Auto) NEGATIVE NEGATIVE Urine RBC NONE /HPF Urine WBC 2-5 /HPF Urine Squamous Epithelial Cells 2-5 /HPF Urine Crystals NONE /LPF Urine Bacteria TRACE /HPF Urine Casts NONE /LPF Urine Mucus NEGATIVE /LPF Urine Culture Indicated NO Sodium Level 137 135-145 MMOL/L Potassium Level 3.9 3.6-5.0 MMOL/L Chloride Level 102 98-107 MMOL/L Carbon Dioxide Level 24 21-32 MMOL/L Anion Gap 11 5-14 MMOL/L Blood Urea Nitrogen 21 H 7-18 MG/DL Creatinine 0.98 0.60-1.30 MG/DL Estimat Glomerular Filtration Rate 57 BUN/Creatinine Ratio 21 Glucose Level 328 H 70-105 MG/DL Lactic Acid Level 1.17 0.50-2.00 MMOL/L Calcium Level 9.1 8.5-10.1 MG/DL Total Bilirubin 0.8 0.1-1.0 MG/DL Aspartate Amino Transf (AST/SGOT) 318 H 5-34 U/L Alanine Aminotransferase (ALT/SGPT) 108 H 0-55 U/L Alkaline Phosphatase 74 40-136 U/L Troponin I < 0.30 <0.30 NG/ML Total Protein 6.9 6.4-8.2 G/DL Albumin 3.6 3.2-4.5 G/DL Micro Results Microbiology 11/27/16 Influenza Types A,B Antigen (TACOS) - Final, Complete My Orders Orders - LAUREN MARQUEZ MD Cbc With Automated Diff (11/27/16 10:12) Comprehensive Metabolic Panel (11/27/16 10:12) Lactic Acid Analyzer (11/27/16 10:12) Blood Culture (11/27/16 10:12) Sputum Culture (11/27/16 10:12) Ua Culture If Indicated (11/27/16 10:12) Protime With Inr (11/27/16 10:12) Partial Thromboplastin Time (11/27/16 10:12) Chest 1 View, Ap/Pa Only (11/27/16 10:12) O2 (11/27/16 10:12) Saline Lock/Iv-Start (11/27/16 10:12) Ekg Tracing (11/27/16 10:12) Troponin I (11/27/16 10:12) Vital Signs Adult Sepsis Patie Q1HR (11/27/16 10:12) Remove Rings In Anticipation O (11/27/16 10:12) Influenza A And B Antigens (11/27/16 10:12) Fentanyl Injection (Sublimaze Injection (11/27/16 10:12) Ct Angio Chest W (11/27/16 11:42) Ns Iv 500 Ml (Sodium Chloride 0.9%) (11/27/16 11:42) Iohexol Injection (Omnipaque 350 Mg/Ml 1 (11/27/16 12:00) Sodium Chloride Flush (Catheter Flush Sy (11/27/16 12:00) Ns (Ivpb) (Sodium Chloride 0.9% Ivpb Bag (11/27/16 12:00) Fibrin Degradation Products (11/27/16 13:01) Fentanyl Injection (Sublimaze Injection (11/27/16 13:29) Fentanyl Injection (Sublimaze Injection (11/27/16 13:29) Medications Given in ED Current Medications Medications Dose Ordered Sig/Johnny Route Start Time Stop Time Status Last Admin Dose Admin Iohexol 125 ml ONCE ONCE IV 11/27/16 12:00 11/27/16 12:27 DC 11/27/16 14:28 125 ML Sodium Chloride 100 ml ONCE ONCE IV 11/27/16 12:00 11/27/16 12:27 DC 11/27/16 14:29 80 ML Sodium Chloride 500 ml @ 0 mls/hr Q0M ONCE IV 11/27/16 11:42 11/27/16 11:43 DC 11/27/16 12:35 500 MLS/HR Vital Signs/I&O Vital Sign - Last 12Hours 11/27/16 10:04 Temp 98.5 Pulse 104 Resp 20 B/P (MAP) Capillary Refill : Less Than 3 Seconds Progress Note : Progress Note Seen and evaluated. IV, labs, EKG, chest x-ray, blood cultures, lactic acid, fentanyl 50 g IV and normal saline 1 L bolus. Monitor patient. 1120: Labs do not show any acute findings. Influenza screen pending. Monitor patient. No acute findings. Patient did have low-grade fever and mild tachycardia in the setting of overall body discomfort. CT angiogram of the chest ordered. Patient refused CT angiogram due to not wanting an IV because it hurt her fibromyalgia too much. D-dimer ordered. This was positive. I did discuss with the patient again about the need for CT angiogram. She agreed to IV of a gave her pain medicine prior. This was done. CT angiogram completed. 1530. CT angiogram chest complete and shows no PE. She does have old scarring. No other significant acute findings. Case discussed with Dr. Price. Patient will be discharged home and should follow up in the clinic this week. She tells me now that she did have an appointment at the clinic at 1 o'clock today but did not go because she was not feeling well and came here instead. Discharged home with return precautions. Patient verbalize understanding instructions and agreement with plan. ECG Initial ECG Impression Date: Nov 27, 2016 Initial ECG Impression Time: 10:47 Initial ECG Rate: 1000 Initial ECG Rhythm: S.Tach Comment Sinus tachycardia with probable left ventricular hypertrophy. Leftward axis. Overall similar to previous from 03/18/15. Interpreted by me. Diagnostic Imaging Diagonstic Imaging: Xray Plain Films/CT/US/NM/MRI: chest Comments VIA [facility]. [place], [place] NAME: LINDA THURMAN [facility] REC#: [id number] PT STATUS: REG ER : 1950 PHYSICIAN: LAUREN MARQUEZ MD ADMIT DATE: 11/27/16/ER Draft Date of Exam:11/27/16 CHEST 1 VIEW, AP/PA ONLY INDICATION: Weakness and fatigue. DISCUSSION: Single portable upright view of the chest was obtained, comparison 08/22/2016. Scarring within the left midlung is stable. Right chest wall Geeuji-p-Hzwn is unchanged. Median sternotomy is again noted. Normal heart size. Underlying COPD is stable. Small left pleural effusion or pleural scarring is stable. IMPRESSION: 1. Stable chest. Dictated on workstation # [id number] Dict: 11/27/16 1045 Trans: 11/27/16 1048 [id number] Interpreted by: REFUGIO KUMAR MD Electronically signed by: Roxsheyla Imaging: CT Plain Films/CT/US/NM/MRI: chest Comments NAME: LINDA THURMAN [facility] REC#: [id number] PT STATUS: REG ER : 1950 PHYSICIAN: LAUREN MARQUEZ MD ADMIT DATE: 11/27/16/ER Draft Date of Exam:11/27/16 CT ANGIO CHEST W PROCEDURE: CT angiography of the chest with contrast. TECHNIQUE: Multiple contiguous axial images were obtained through the chest after uneventful bolus administration of intravenous contrast. Reconstructed CTA MIP acquisitions were also performed. INDICATION: Shortness of breath. 125 mL of Omnipaque-350 was administered intravenously. Correlation with CT chest from 04/08/2015. FINDINGS: There is good opacification of the pulmonary arteries with no filling defects to suggest pulmonary embolism. There is a right-sided aortic arch with mirror-image great vessel branch pattern and a diverticulum of Kommerell extending posterior to the esophagus and the trachea. There is no aortic dissection. There is prominent size of the heart. No pericardial effusion. No pleural effusion. There is a stable to slightly more prominent chronic atelectasis and scarring seen in the posterior segment of the left lower lobe. Centrilobular emphysema changes predominantly involving the upper lobes are noted. No significant consolidation. There is no significant lymphadenopathy in the mediastinum, jean-pierre or in the axilla. 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 Sections of the upper abdomen appears grossly unremarkable. IMPRESSION: 1. No PE or aortic dissection. 2. Normal variation of a right-sided aortic arch with mirror image branch pattern and diverticulum of Kommerell extending posterior to the esophagus at the distal aspect of the arch. 3. Chronic scarring and atelectasis in the posterior segment of the left lower lobe minimally more prominent compared to prior exam. Dictated on workstation # [id number] Departure Impression Impression: Primary Impression: Fibromyalgia Disposition: 01 HOME, SELF-CARE Condition: Stable Departure-Patient Inst. Decision time for Depature: 15:34 Referrals: [facility] (PCP/Family) Primary Care Physician Patient Instructions: Fibromyalgia (DC) Add. Discharge Instructions: All discharge instructions reviewed with patient and/or family. Voiced understanding. Drink plenty of fluids. You need to manage your diabetes better. Carefully check your sugars and take your medicines as directed. You did miss your clinic appointment today at 1 o'clock. You need to call first thing in the morning for appointment later this week. Repeat turn for worse pain, fever, vomiting, weakness, breathing problems or other concerns as needed. You may take Tylenol 1000 mg every 8 hours as needed for fever or pain as well. Scripts Tramadol HCl (Tramadol HCl) 50 Mg Tablet 50 MG PO Q6H Y for PAIN, #20 TAB 0 Refills Prov: LAUREN MARQUEZ MD 11/27/16 Copy Copies To 1: LEODAN PRICE MD, TIMOTHY D MD Nov 27, 2016 10:59
[2016-11-27 11:05] LABS: ALANINE AMINOTRANSFERASE 108 U/L (0-55); ALBUMIN 3.6 G/DL (3.2-4.5); ANION GAP 11 MMOL/L (5-14); ASPARTATE AMINO TRANSFERASE 318 U/L (5-34); BILIRUBIN,TOTAL 0.8 MG/DL (0.1-1.0); BLOOD UREA NITROGEN 21 MG/DL (7-18); BUN/CREATININE RATIO 21; CALCIUM 9.1 MG/DL (8.5-10.1); CARBON DIOXIDE 24 MMOL/L (21-32); CHLORIDE 102 MMOL/L (98-107); CREATININE SERUM 0.98 MG/DL (0.60-1.30); GFR ESTIMATED 57; GLUCOSE 328 MG/DL (70-105); POTASSIUM 3.9 MMOL/L (3.6-5.0); SODIUM 137 MMOL/L (135-145); TOTAL PROTEIN 6.9 G/DL (6.4-8.2)
[2016-11-27 11:06] LABS: TROPONIN I < 0.30 NG/ML (<0.30)
[2016-11-27] MEDS ORDERED: NS IV 500 ML 500 ML IV ONE (11:42)
[2016-11-27] MEDS ORDERED: NS 100 ML (IVPB) BAG IV ONE (12:00)
[2016-11-27] MEDS ORDERED: CATHETER FLUSH 10 ML SYR IV PRN (12:00)
[2016-11-27] MEDS ORDERED: IOHEXOL 350 MG/ML 150 ML (OMNIPAQUE 350) VIAL IV ONE (12:00)
[2016-11-27] MEDS ORDERED: fentaNYL INJECTION 100 MCG/2 ML AMP ONE (13:29)
--- NOTE | 2016-11-27 15:25 | Diagnostic Imaging Report ---
PROCEDURE: CT angiography of the chest with contrast. TECHNIQUE: Multiple contiguous axial images were obtained through the chest after uneventful bolus administration of intravenous contrast. Reconstructed CTA MIP acquisitions were also performed. INDICATION: Shortness of breath. 125 mL of Omnipaque-350 was administered intravenously. Correlation with CT chest from 04/08/2015. FINDINGS: There is good opacification of the pulmonary arteries with no filling defects to suggest pulmonary embolism. There is a right-sided aortic arch with mirror-image great vessel branch pattern and a diverticulum of Kommerell extending posterior to the esophagus and the trachea. There is no aortic dissection. There is prominent size of the heart. No pericardial effusion. No pleural effusion. There is a stable to slightly more prominent chronic atelectasis and scarring seen in the posterior segment of the left lower lobe. Centrilobular emphysema changes predominantly involving the upper lobes are noted. No significant consolidation. There is no significant lymphadenopathy in the mediastinum, jean-pierre or in the axilla. 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 Sections of the upper abdomen appears grossly unremarkable. IMPRESSION: 1. No PE or aortic dissection. 2. Normal variation of a right-sided aortic arch with mirror image branch pattern and diverticulum of Kommerell extending posterior to the esophagus at the distal aspect of the arch. 3. Chronic scarring and atelectasis in the posterior segment of the left lower lobe minimally more prominent compared to prior exam. Dictated by: Dictated on workstation # [id number]
[2016-11-27] MEDS ORDERED: TRAM50TA2 PO (15:36)
[2016-11-27 16:29] VITALS: BP 142/88
== END 2016-11-27 16:29 | disposition home or self-care (01) ==
LOC: EDUNIT# 10:03 → ER 10:04
DX: M79.7 Fibromyalgia (principal); I25.10 Atherosclerotic heart disease of native coronary artery without angina pectoris; J44.9 Chronic obstructive pulmonary disease, unspecified; E11.9 Type 2 diabetes mellitus without complications; Z79.82 Long term (current) use of aspirin; Z79.4 Long term (current) use of insulin; Z79.84 Long term (current) use of oral hypoglycemic drugs; Z79.899 Other long term (current) drug therapy; Z95.5 Presence of coronary angioplasty implant and graft; Z95.1 Presence of aortocoronary bypass graft
CPT/HCPCS: 36415; 51702; 71010; 71275; 80053; 81000; 83605; 84484; 85025; 85379; 85610; 85730; 87040; 87804; 93005; 96374; 96376

== ENCOUNTER → 2017-02-22 | Outpatient (CLI) | payer MEDICARE, MEDICAID ==
[~2017-02-22] VITALS: Ht 167.6 cm; Wt 76.7 kg
[~2017-02-22] MED LIST changes: +ACETAMINOPHEN 500 MG TAB (TYLENOL) ONE; +ACETAMINOPHEN 500 MG TAB (TYLENOL) PO SCH; +CEPH-507 PO; +CYAN500T2 PO; +INSU100V6 SC; +METO-272 PO; +RT-ALBUINH IH; +TRAM50TA2 PO; +diphenhydrAMINE 25 MG TAB (BENADRYL) PO ONE; +diphenhydrAMINE 25 MG TAB (BENADRYL) PO SCH; +inFLIXimab 500 MG/NS 250 ML (EXCEL) IV SCH
[2017-02-22 13:25] VITALS: BP 111/65
== END ==
LOC: SDC 10:36
PROVIDERS: ATTEND Family Medicine
DX: M06.9 Rheumatoid arthritis, unspecified (principal)
CPT/HCPCS: 96365; 96366; 96374

== ENCOUNTER 2017-02-26 20:10 | Outpatient (CLI) | payer MEDICARE, MEDICAID ==
[~2017-02-26 20:10] MED LIST changes: -ACETAMINOPHEN 500 MG TAB (TYLENOL) ONE; -ACETAMINOPHEN 500 MG TAB (TYLENOL) PO SCH; -diphenhydrAMINE 25 MG TAB (BENADRYL) PO ONE; -diphenhydrAMINE 25 MG TAB (BENADRYL) PO SCH; -inFLIXimab 500 MG/NS 250 ML (EXCEL) IV SCH
== END 2017-02-27 06:59 | disposition home or self-care (01) ==
LOC: SLEEP 20:10
PROVIDERS: ATTEND Nurse Practitioner Family
DX: G47.33 Obstructive sleep apnea (adult) (pediatric) (principal); G47.34 Idiopathic sleep related nonobstructive alveolar hypoventilation
CPT/HCPCS: 95811

== ENCOUNTER → 2017-06-05 | Outpatient (CLI) | payer MEDICARE, MEDICAID ==
--- NOTE | 2017-06-05 10:08 | Diagnostic Imaging Report ---
AP and lateral views of the chest. INDICATION: Left lung mass. COMPARISON: 01/20/2017. FINDINGS: There is nonspecific area of consolidation seen in the inferior lingula which appears minimally more prominent compared to 01/20/2017. The right lung appears clear. The heart size is normal. There is a small left pleural effusion. No pneumothorax. Post sternotomy changes and an infusion port are again noted. IMPRESSION: Nonspecific focal consolidation appears minimally increased, lower left lingula. Dictated by: Dictated on workstation # [id number]
== END ==
LOC: RAD 09:04
PROVIDERS: ATTEND Nurse Practitioner Community Health
DX: R91.8 Other nonspecific abnormal finding of lung field (principal)
CPT/HCPCS: 71020

== ENCOUNTER → 2017-06-12 | Outpatient (CLI) | payer MEDICARE, MEDICAID ==
[~2017-06-12] MED LIST changes: +IOHEXOL 350 MG/ML 100 ML (OMNIPAQUE 350) VIAL IV ONE; +NS 100 ML (IVPB) BAG IV ONE
[2017-06-12 12:23] LABS: CREATININE SERUM 1.85 MG/DL (0.60-1.30)
--- NOTE | 2017-06-12 16:12 | Diagnostic Imaging Report ---
PROCEDURE: CT chest without contrast. TECHNIQUE: Multiple contiguous axial images were obtained through the chest without the use of intravenous contrast. INDICATION: Lung mass. COMPARISON: 11/27/2016. FINDINGS: There is a stable mass in the left lower lobe measuring 3 x 1.9 cm with associated findings suggestive of round atelectasis and scarring. The findings demonstrate no significant change from 02/22/[address] scan confirming benign etiology. There are mild upper lobe emphysema changes seen. No significant pleural effusion. There is pleural thickening on the left side. Infusion port is noted terminating in the SVC level. There is no significant consolidation, new mass or suspicious nodule identified. There is a right-sided aortic arch with mirror image branching pattern and diverticulum of Kommerell projecting posterior to the trachea seen. PostCABG changes with areas of nonunion in the upper and lower sternotomy seen. The heart size is normal. There is a mild compression fracture of T5 vertebral body new from November 2016. IMPRESSION: 1. Stable mass from previous exams measuring 3 cm in the left lower lobe is compatible with chronic round atelectasis. 2. 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 3. New compression fracture of T5 vertebral body from November 2016. If the patient has upper thoracic pain and history of recent injury, then this could be further evaluated with an MRI of the thoracic spine. Dictated by: Dictated on workstation # [id number]
== END ==
LOC: RAD 11:02
PROVIDERS: ATTEND Nurse Practitioner Community Health
DX: R91.8 Other nonspecific abnormal finding of lung field (principal); R90.89 Other abnormal findings on diagnostic imaging of central nervous system; M48.54XA Collapsed vertebra, not elsewhere classified, thoracic region, initial encounter for fracture
CPT/HCPCS: 36415; 71250; 82565; 84520

== ENCOUNTER → 2019-08-13 | Outpatient (CLI) | payer MEDICARE, MEDICAID ==
[~2019-08-13] MED LIST changes: +CYAN-41 PO; -CYAN10006 PO; -CYAN500T2 PO; +CYAN500T62 PO; -IOHEXOL 350 MG/ML 100 ML (OMNIPAQUE 350) VIAL IV ONE; -METO-272 PO; +METO-370 PO; -NS 100 ML (IVPB) BAG IV ONE
--- NOTE | 2019-08-13 14:02 | Diagnostic Imaging Report ---
PROCEDURE: CT abdomen and pelvis without contrast. TECHNIQUE: Multiple contiguous axial images were obtained through the abdomen and pelvis without the use of intravenous contrast. Auto Exposure Controls were utilized during the CT exam to meet ALARA standards for radiation dose reduction. INDICATION: Urinary tract infections. COMPARISON: Comparison is made with prior CT from 08/22/2016. FINDINGS: Lung bases are clear. There appears to be some trace pleural fluid or pleural thickening in the left base posteriorly. No discrete liver mass is identified. The gallbladder is surgically absent. No biliary ductal dilatation is seen. Pancreas is atrophic. The spleen is unremarkable. No adrenal mass is detected. No renal calculi or hydronephrosis is identified. Aorta and iliac vessels are heavily calcified but non-aneurysmal. There is a filter within the inferior vena cava. The small and large bowel loops are normal caliber. There is diverticulosis of the sigmoid but no evidence of acute diverticulitis. Imaging through the pelvis does show a small amount of gas within the urinary bladder. In addition, there appears to be gas in what appears to be within the uterus anterior aspect. No free fluid or fluid collection is identified. No other significant abnormalities seen. IMPRESSION: 1. There is gas identified in the urinary bladder as well as what appears to be the anterior aspect of the uterus. A colovesical and/or colouterine fistula cannot be entirely excluded. A repeat imaging utilizing rectal contrast to evaluate for fistula could be performed for further evaluation. Dictated by: Dictated on workstation # [id number]
== END ==
LOC: RAD 12:30
PROVIDERS: ATTEND Urology
DX: Z87.440 Personal history of urinary (tract) infections (principal)
CPT/HCPCS: 74176

== ENCOUNTER 2019-09-12 16:52 | Emergency (ER) | payer MEDICARE, MEDICAID ==
[~2019-09-12] VITALS: Ht 167 cm; Wt 95.5 kg
[~2019-09-12 16:52] MED LIST changes: -METO-370 PO; -TRAM50TA2 PO; +TRM50T PO
[2019-09-12 17:27] LABS: BASOPHILS % (AUTO) 0 % (0-10); EOSINOPHILS # (AUTO) 0.1 10^3/uL (0.0-0.3); EOSINOPHILS % (AUTO) 1 % (0-10); HEMATOCRIT 39 % (35-52); HEMOGLOBIN 12.3 G/DL (11.5-16.0); LYMPHOCYTES # (AUTO) 1.6 X 10^3 (1.0-4.0); LYMPHOCYTES % (AUTO) 17 % (12-44); MEAN CORPUSCULAR HEMOGLOBIN 29 PG (25-34); MEAN CORPUSCULAR HGB CONC 32 G/DL (32-36); MEAN CORPUSCULAR VOLUME 93 FL (80-99); MEAN PLATELET VOLUME 8.6 FL (7.4-10.4); MONOCYTES % (AUTO) 10 % (0-12); NEUTROPHILS # (AUTO) 6.9 X 10^3 (1.8-7.8); NEUTROPHILS % (AUTO) 72 % (42-75); PLATELET COUNT 385 10^3/uL (130-400); WHITE BLOOD COUNT 9.5 10^3/uL (4.3-11.0)
[2019-09-12] MEDS ORDERED: NS IV 500 ML 500 ML IV ONE (17:28)
[2019-09-12] MEDS ORDERED: ONDANSETRON 4 MG/2 ML (SDV) Z0FRAN IVP ONE (17:30)
[2019-09-12 17:45] LABS: MAGNESIUM 1.2 MG/DL (1.6-2.4)
[2019-09-12 17:48] LABS: ALANINE AMINOTRANSFERASE < 6 U/L (0-55); ALBUMIN 2.6 GM/DL (3.2-4.5); ALKALINE PHOSPHATASE 104 U/L (40-136); BILIRUBIN,TOTAL 0.2 MG/DL (0.1-1.0); BUN/CREATININE RATIO 14; CALCIUM 8.4 MG/DL (8.5-10.1); CARBON DIOXIDE 23 MMOL/L (21-32); CHLORIDE 103 MMOL/L (98-107); CREATININE SERUM 0.64 MG/DL (0.60-1.30); GFR ESTIMATED > 60; GLUCOSE 180 MG/DL (70-105); POTASSIUM 3.7 MMOL/L (3.6-5.0); SODIUM 137 MMOL/L (135-145); TOTAL PROTEIN 6.6 GM/DL (6.4-8.2)
[2019-09-12] MEDS ORDERED: MAGNESIUM 1 GM/100 ML IVPB 100 ML IV ONE ×2 (18:15)
[2019-09-12] MEDS ORDERED: KETOROLAC 30 MG/ML VIAL IVP ONE (18:45)
--- NOTE | 2019-09-12 18:59 | ED General ---
General Chief Complaint: Abdominal/GI Problems Stated Complaint: VOMITING Nursing Triage Note: C/O N/V starting today, family reports that the patient has not been acting like she has felt well for the past several days Nursing Sepsis Screen: No Definite Risk Source of Information: Patient Exam Limitations: No Limitations History of Present Illness Date Seen by Provider: Sep 12, 2019 Time Seen by Provider: 16:54 Initial Comments This 69-year-old woman is brought to the emergency room via EMS from the assisted with primary complaint of vomiting. She has been declining recently and not been feeling well. She started vomiting today. Family is concerned and requested that she be assessed in the ER. 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 She has a pending consult with Dr. Blackmon. She is afebrile. She is severely debilitated from chronic arthritis and does not walk. She complains of chronic pain in her knees. She also has some mild suprapubic tenderness at this time. Family reports she has had some suspected blood and/or stool substance coming from the vaginal area. She also has a large decubitus sacral ulcer. Because of patient's significant decline over the last year, family has begun discussions about hospice. The family provides much of the history. The patient does not want to talk and refuses to answer some questions. Allergies and Home Medications Allergies Coded Allergies: enalaprilat (Verified Allergy, Unknown, 09/10/09) Home Medications Acetaminophen 500 Mg Tablet, 1,000 MG PO Q6H PRN for PAIN-MILD, (Reported) Albuterol Sulfate 1 Puff Puff, 2 PUFF IH Q4H PRN for SHORTNESS OF BREATH, (Reported) LAST FILLED 04-30-16 Aspirin 81 Mg Tabec, 81 MG PO DAILY, (Reported) Atorvastatin Calcium 40 Mg Tablet, 40 MG PO HS, (Reported) Budesonide/Formoterol Fumarate 10.2 Gm Hfa.aer.ad, 2 PUFF IH BID, (Reported) LAST FILLED 04-30-16 Cephalexin 500 Mg Capsule, 500 MG PO BID Prescribed by: ANA PAULA WINN on 01/25/17 1143 Clopidogrel Bisulfate 75 Mg Tablet, 75 MG PO DAILY, (Reported) LAST FILLED 08-21-16 #90 Cyanocobalamin (Vitamin B-12) 500 Mcg Tablet, 1,000 MCG PO DAILY, (Reported) Diphenoxylate HCl/Atropine 1 Each Tablet, 1 TAB PO QID PRN for DIARRHEA, (Reported) Escitalopram Oxalate 20 Mg Tablet, 30 MG PO DAILY, (Reported) TAKES 1 & 1/2 TAB OF 20MG TAB DAILY Fenofibrate,Micronized 145 Mg Tablet, 145 MG PO HS, (Reported) Ferrous Sulfate 325 Mg Tablet, 325 MG PO DAILY Prescribed by: XIANG LEE on 03/12/15 1437 Furosemide 40 Mg Tablet, 40 MG PO DAILY, (Reported) Insulin Glargine,Hum.rec.anlog 100 Unit/1 Ml Vial, 25 UNITS SC HS, (Reported) Leflunomide 20 Mg Tablet, 20 MG PO DAILY, (Reported) LAST FILLED 09-21-16 #90 Metformin Hcl 500 Mg Tablet, 1,000 MG PO BID, (Reported) TAKES 2 (500MG) TABLETS Metoprolol Succinate 50 Mg Tab.er.24h, 50 MG PO DAILY, (Reported) LAST FILLED #90 17 Ondansetron 4 Mg Tab.rapdis, 4 MG SL Q4H Prescribed by: YULISSA GONCALVES on 09/12/19 1900 Oxybutynin Chloride 5 Mg Tablet, 5 MG PO BID, (Reported) Pantoprazole Sod 40 Mg Tab, 40 MG PO DAILY, (Reported) Pioglitazone Hcl 30 Mg Tab, 30 MG PO DAILY, (Reported) Potassium Chloride 10 Meq Tablet.sa, 20 MEQ PO DAILY, (Reported) TAKES 2 (10MEQ) TABLETS Patient Home Medication List Home Medication List Reviewed: Yes Review of Systems Review of Systems Constitutional: no symptoms reported EENTM: no symptoms reported Respiratory: no symptoms reported Cardiovascular: no symptoms reported Gastrointestinal: see HPI Genitourinary: see HPI : No Musculoskeletal: see HPI Skin: see HPI Psychiatric/Neurological: No Symptoms Reported Hematologic/Lymphatic: No Symptoms Reported Immunological/Allergic: no symptoms reported Past Lszhcyw-Rzqaft-Zusisn Hx Past Med/Social Hx: Reviewed Nursing Past Med/Soc Hx Patient Social History Alcohol Use: Denies Use Recreational Drug Use: No Type Used: Cigarettes Former Smoker, Quit: Aug 19, 1993 2nd Hand Smoke Exposure: No Recent Foreign Travel: No Contact w/Someone Who Travel: No Recent Infectious Disease Expo: No Recent Hopitalizations: Yes Immunizations Up To Date Tetanus Booster (TDap): More than 5yrs Date of Pneumonia Vaccine: May 19, 2010 Date of Influenza Vaccine: May 19, 2014 Seasonal Allergies Seasonal Allergies: No Past Medical History Surgeries: Yes (TRIPLE BYPASS AND 7 STENTS PLACED IN 2006) Cardiac, CABG Respiratory: Yes Pneumonia, Sleep Apnea, COPD, Emphysema Currently Using CPAP: No Currently Using BIPAP: No Cardiac: Yes (BYPASS) Coronary Artery Disease Neurological: Yes Reproductive Disorders: No Female Reproductive Disorders: Denies Sexually Transmitted Disease: Yes (CHLAMYDIA HX) HIV/AIDS: No Genitourinary: Yes UTI-Chronic Gastrointestinal: Yes Gastroesophageal Reflux Musculoskeletal: Yes (RA/FIBROMYALGIA - REMICADE EVERY 8 WEEKS) Fibromyalgia, Rheumatoid Arthritis Endocrine: Yes Diabetes, Insulin dep HEENT: No Loss of Vision: Denies Hearing Impairment: Denies Cancer: No Psychosocial: Yes Anxiety, Depression Integumentary: No Blood Disorders: No Adverse Reaction/Blood Tranf: No Family Medical History Alcoholism son, Onset:Unknown son, Onset:Unknown Cardiovascular disease 19 FATHER, Onset:Unknown Chest pain 19 FATHER, Onset:Unknown Diabetes mellitus 19 FATHER, Onset:Unknown G8 SISTER, Onset:Unknown DAUGHTER, Onset:Unknown Family history: Diabetes mellitus 19 FATHER G8 SISTER DAUGHTER Family history: Hypertension 19 FATHER 19 MOTHER DAUGHTER History of - respiratory disease DAUGHTER Myocardial infarction 19 FATHER Myocardial infarction 19 FATHER Psychotic disorder 19 FATHER 19 MOTHER DAUGHTER Tuberculosis Grandmother, Onset:Unknown No Family History of: Abdominal aortic aneurysm Yohannes's disease Aphasia Arthritis Asthma Cancer Cancer of colon Cancer of mouth Cataract Cataracts Colon cancer Completed stroke Congenital disease Congenital heart disease Congestive heart failure Coronary thrombosis Cystic fibrosis Cystic fibrosis Deafness or hearing loss Dementia Dementia Drug abuse Dysphagia Dysphasia Family history: Allergy Family history: Alzheimer's disease Family history: Arthritis Family history: Asthma Family history: Breast disease Family history: Cardiovascular disease Family history: Coronary thrombosis Family history: Gastrointestinal disease Family history: Glaucoma Family history: Osteoporosis Family history: Thyroid disorder Headache Hearing loss Heart disease Hereditary disease History of - anemia History of - disorder History of drug abuse Human immunodeficiency virus (HIV) seropositivity Hypercholesterolemia Hypertension Infertile Infertility Kidney disease Kidney disease Malignant neoplasm of lung Neoplasm Not obtainable due to adoption Osteoporosis Parkinson's disease Parkinson's disease Prostate cancer Respiratory disorder Seizure disorder Seizure disorder Severe allergy Stroke Tuberculosis Visual impairment No Pertinent Family Hx Physical Exam Vital Signs Vital Signs - First Documented 09/12/19 17:22 Temp 36.7 Pulse 79 Resp 14 B/P (MAP) 133/75 (94) Pulse Ox 98 O2 Delivery Room Air Capillary Refill : Less Than 3 Seconds Height, Weight, BMI Height: 5'6.00" Weight: 169lbs. 0.0oz. [id number]; 34.00 BMI Method:Estimated General Appearance: WD/WN, Cachetic, Mild Distress HEENT: PERRL/EOMI, Normal ENT Inspection, Other (oropharynx somewhat dry) Neck: Normal Inspection Respiratory: Lungs Clear, Normal Breath Sounds, No Accessory Muscle Use, No Respiratory Distress Cardiovascular: Regular Rate, Rhythm, No Edema, No Murmur Gastrointestinal: Normal Bowel Sounds, Soft, Tenderness (mild in the suprapubic region) Extremity: Other (swelling and tenderness about the knees. Arthritic deformity of the lower extremities.) Neurologic/Psychiatric: Alert, Motor Weakness (generalized), Other (patient does not answer questions of orientation) Skin: Normal Color, Warm/Dry, Other (decubitus ulcer about 2 cm in diameter over the sacrum) Procedures/Interventions Suture Size: 5-0 Progress/Results/Core Measures Suspected Sepsis Recent Fever Within 48 Hours: No Infection Criteria Present: None New/Unexplained Altered Menta: No Sepsis Screen: No Definite Risk SIRS Temperature: Pulse: 79 Respiratory Rate: 14 Laboratory Tests 09/12/19 17:15: White Blood Count 9.5 Blood Pressure 133 /75 Mean: 94 Laboratory Tests 09/12/19 17:15: Creatinine 0.64, Platelet Count 385, Total Bilirubin 0.2 Results/Orders Lab Results Laboratory Tests Test 09/12/19 17:15 Range/Units White Blood Count 9.5 4.3-11.0 10^3/uL Red Blood Count 4.18 L 4.35-5.85 10^6/uL Hemoglobin 12.3 11.5-16.0 G/DL Hematocrit 39 35-52 % Mean Corpuscular Volume 93 80-99 FL Mean Corpuscular Hemoglobin 29 25-34 PG Mean Corpuscular Hemoglobin Concent 32 32-36 G/DL Red Cell Distribution Width 15.0 H 10.0-14.5 % Platelet Count 385 130-400 10^3/uL Mean Platelet Volume 8.6 7.4-10.4 FL Neutrophils (%) (Auto) 72 42-75 % Lymphocytes (%) (Auto) 17 12-44 % Monocytes (%) (Auto) 10 0-12 % Eosinophils (%) (Auto) 1 0-10 % Basophils (%) (Auto) 0 0-10 % Neutrophils # (Auto) 6.9 1.8-7.8 X 10^3 Lymphocytes # (Auto) 1.6 1.0-4.0 X 10^3 Monocytes # (Auto) 1.0 0.0-1.0 X 10^3 Eosinophils # (Auto) 0.1 0.0-0.3 10^3/uL Basophils # (Auto) 0.0 0.0-0.1 10^3/uL Sodium Level 137 135-145 MMOL/L Potassium Level 3.7 3.6-5.0 MMOL/L Chloride Level 103 98-107 MMOL/L Carbon Dioxide Level 23 21-32 MMOL/L Anion Gap 11 5-14 MMOL/L Blood Urea Nitrogen 9 7-18 MG/DL Creatinine 0.64 0.60-1.30 MG/DL Estimat Glomerular Filtration Rate > 60 BUN/Creatinine Ratio 14 Glucose Level 180 H 70-105 MG/DL Calcium Level 8.4 L 8.5-10.1 MG/DL Corrected Calcium 9.5 8.5-10.1 MG/DL Magnesium Level 1.2 L 1.6-2.4 MG/DL Total Bilirubin 0.2 0.1-1.0 MG/DL Aspartate Amino Transf (AST/SGOT) 7 5-34 U/L Alanine Aminotransferase (ALT/SGPT) < 6 0-55 U/L Alkaline Phosphatase 104 40-136 U/L C-Reactive Protein High Sensitivity 3.87 H 0.00-0.50 MG/DL Total Protein 6.6 6.4-8.2 GM/DL Albumin 2.6 L 3.2-4.5 GM/DL My Orders Orders - YULISSA COLORADO MD Cbc With Automated Diff (09/12/19 16:55) Comprehensive Metabolic Panel (09/12/19 16:55) Ed Iv/Invasive Line Start (09/12/19 16:55) Ondansetron Injection (Zofran Injectio (09/12/19 17:30) Magnesium (09/12/19 17:26) Hs C Reactive Protein (09/12/19 17:26) Ns Iv 500 Ml (Sodium Chloride 0.9%) (09/12/19 17:28) Magnesium 1 Gm/100 Ml Ivpb (Magnesium Fonseca (09/12/19 18:15) Magnesium 1 Gm/100 Ml Ivpb (Magnesium Fonseca (09/12/19 18:15) Ketorolac Injection (Toradol Injection) (09/12/19 18:45) Medications Given in ED Current Medications Medications Dose Ordered Sig/Johnny Route Start Time Stop Time Status Last Admin Dose Admin Ketorolac Tromethamine 15 mg ONCE ONCE IVP 09/12/19 18:45 09/12/19 18:46 DC 09/12/19 18:54 15 MG Magnesium Sulfate/ Dextrose 100 ml @ 100 mls/hr ONCE ONCE IV 09/12/19 18:15 09/12/19 19:14 DC 09/12/19 18:23 100 MLS/HR Magnesium Sulfate/ Dextrose 100 ml @ 100 mls/hr ONCE ONCE IV 09/12/19 18:15 09/12/19 19:14 DC 09/12/19 19:27 100 MLS/HR Vital Signs/I&O 09/12/19 20:52 Temp 36.7 Pulse 79 Resp 14 B/P (MAP) 133/75 (94) Pulse Ox 98 Capillary Refill : Less Than 3 Seconds Blood Pressure Mean: 94 Progress Note : Progress Note Patient did not show signs of significant infection as her WBC was normal, CRP was low, and temperature was normal. We discussed obtaining a urine specimen for urinalysis. Patient refuses a catheter specimen. Because of her debility she does not get up to a commode. A urine bag would be notably contaminated. Therefore we are foregoing the urinalysis at this time. I did have a discussion about CODE STATUS with patient and the family. They do elect to make her DO NOT RESUSCITATE and plan to drop the paperwork with the assistant professor of nursing on Saturday. Patient was treated with Zofran. A 500 mL normal saline bolus was administered. Patient needed a repeat dose of Zofran for rebound nausea. Magnesium was found to be significantly low at 1.2. A replacement of magnesium 2 g IV was infused. A Mirapex dressing was placed over the sacral wound. Departure Impression Primary Impression: Hypomagnesemia Additional Impressions: Nausea and vomiting Qualified Codes: R11.2 - Nausea with vomiting, unspecified Sacral decubitus ulcer Qualified Codes: L89.159 - Pressure ulcer of sacral region, unspecified s carmen Disposition: HOME, SELF-CARE Condition: Improved Departure-Patient Inst. Decision time for Depature: 18:57 Referrals: REFUGIO SUTHERLAND MD (PCP) Primary Care Physician DANNIE SHERMAN (Family) Primary Care Physician Patient Instructions: Nausea and Vomiting, Adult Add. Discharge Instructions: Encourage plenty of clear liquids. Start with a clear liquid diet tonight and gradually advance with small quantities of bland foods as tolerated. Do not attempt solid foods until tomorr ow. Follow-up with your primary care provider as soon as possible. Use Zofran as prescribed for nausea and vomiting. Return to care if symptoms are worsening. All discharge instructions reviewed with patient and/or family. Voiced understanding. Scripts Ondansetron (Ondansetron Odt) 4 Mg Tab.rapdis 4 MG SL Q4H, #10 TAB Prov: YULISSA COLORADO MD 09/12/19 Copy Copies To 1: REFUGIO SUTHERLAND MD, JOSHUA T MD Sep 12, 2019 18:59
[2019-09-12] MEDS ORDERED: ONDA4TAB11 SL (19:00)
[2019-09-12 20:52] VITALS: BP 133/75
== END 2019-09-12 20:49 | disposition home or self-care (01) ==
LOC: EDUNIT# 16:52 → ER 16:54
DX: E83.42 Hypomagnesemia (principal); R11.2 Nausea with vomiting, unspecified; E11.9 Type 2 diabetes mellitus without complications; L89.159 Pressure ulcer of sacral region, unspecified stage; J43.9 Emphysema, unspecified; F32.9 Major depressive disorder, single episode, unspecified; F41.9 Anxiety disorder, unspecified; Z95.1 Presence of aortocoronary bypass graft; Z88.8 Allergy status to other drugs, medicaments and biological substances; Z79.82 Long term (current) use of aspirin; Z79.02 Long term (current) use of antithrombotics/antiplatelets; Z79.4 Long term (current) use of insulin; Z87.891 Personal history of nicotine dependence; Z87.440 Personal history of urinary (tract) infections; Z82.49 Family history of ischemic heart disease and other diseases of the circulatory system
CPT/HCPCS: 36415; 80053; 83735; 85025; 86141